=== PATIENT | male | born 1950 | race Caucasian/White ===

== ENCOUNTER 2017-11-03 01:45 | Inpatient (IN) | END 2017-11-05 17:10 | disposition home or self-care (01) | DRG 378 ==

== ENCOUNTER 2018-08-01 23:35 | Emergency (ER) | payer MEDICARE, MEDICAID ==
[~2018-08-01] VITALS: Ht 167.6 cm; Wt 89.1 kg
[~2018-08-01 23:35] MED LIST: ASCO500C7 PO; ASPI-817 PO; CIPR500T4 PO; DOCU-216 PO; GLIM4TAB PO; GLUC-181 PO; LEVO25TA6 PO; LISI-471 PO; METR500T19 PO; MTF1000T PO; MULT-761 PO; OMEG1CAP35 PO; PANT40TA3 PO; SIMV5TAB50 PO; TERA10CA3 PO
[2018-08-01 23:37] VITALS: Ht 167.6 cm; Wt 89.1 kg
[2018-08-02] MEDS ORDERED: SOD CHLORIDE 0.9% 500 ML IV STA (00:37)
--- NOTE | 2018-08-02 00:53 | ERD ---
ER Documentation Chief Complaint Chief Complaint Blood in stool X3 X 1 day HPI This is a 67-year-old male who is here with rectal bleeding. The patient has a history of diverticulitis and he said that he is having some mild abdominal pain lower portion with 3 episodes of bloody diarrhea starting at 6 PM today. No dizziness no pain in the back no vomiting fever ROS All systems reviewed and are negative except as per history of present illness. Medications Home Meds Active Scripts Metronidazole* (Metronidazole*) 500 Mg Tablet, 500 MG PO Q8, #33 TAB Prov:YARITZA AG 11/05/17 Ciprofloxacin Hcl* (Ciprofloxacin Hcl*) 500 Mg Tablet, 500 MG PO BID, #22 TAB Prov:YARITZA AG 11/05/17 Pantoprazole* (Protonix*) 40 Mg Tablet.dr, 40 MG PO DAILY, #30 TAB Prov:YARITZA AG 11/05/17 Docusate Sodium (Dok) 100 Mg Capsule, 100 MG PO Q12H PRN for CONSTIPATION, #60 CAP Prov:YARITZA AG 11/05/17 Reported Medications Ascorbic Acid* (Vitamin C*) 500 Mg Capsule.sa, 1000 MG PO DAILY, CAP 11/03/17 Glucosam/Chond/Hyalu/Cf Borate (Move Free Joint Health Tablet) 1 Each Tablet, 1 EACH PO DAILY, TAB 11/03/17 Levothyroxine Sodium* (Levothyroxine Sodium*) 25 Mcg Tablet, 25 MCG PO BEFORE BREAKFAST, TAB 11/03/17 Multivitamin (MULTI VITAMIN DAILY) 1 Each Tablet, 1 TAB PO DAILY, TAB 11/03/17 [place]-3/Dha/Epa/Fish Oil (FISH OIL 1,400 MG SOFTGEL) 1 Each Capsule.dr, 1 EACH PO DAILY 11/03/17 Aspirin* (Aspirin* EC) 81 Mg Tablet.dr, 81 MG PO DAILY, TAB 11/03/17 Terazosin Hcl* (Terazosin Hcl*) 10 Mg Capsule, 10 MG PO HS, CAP 11/03/17 Simvastatin* (Simvastatin*) 5 Mg Tablet, 20 MG PO QHS, TAB 11/03/17 Lisinopril* (Lisinopril*) 20 Mg Tablet, 20 MG PO DAILY, TAB 11/03/17 Glimepiride* (Glimepiride*) 4 Mg Tablet, 4 MG PO WITH BREAKFAST, TAB 11/03/17 Metformin* (Glucophage*) 1,000 Mg Tablet, 1000 MG PO BID, TAB 11/03/17 Allergies Allergies: Coded Allergies: No Known Allergy (Unverified , 08/02/18) PMhx/Soc Medical and Surgical Hx: pt denies Surgical Hx History of Surgery: Yes (EGD, COLONOSCOPY 2010) Anesthesia Reaction: No Hx Neurological Disorder: No Hx Respiratory Disorders: No Hx Cardiac Disorders: Yes (DM, HTN, CHOLES) Hx Psychiatric Problems: No Hx Miscellaneous Medical Probl: Yes (GASTRITIS, HEMORRHOIDS) Hx Alcohol Use: Yes (DRINKS SOCIALLY) Hx Substance Use: No Hx Tobacco Use: No Smoking Status: Never smoker FmHx Family History: No coronary disease Physical Exam Vitals Vital Signs Date Temp Pulse Resp B/P (MAP) Pulse Ox O2 O2 Flow FiO2 Time Delivery Rate 08/02/18 68 18 109/76 98 Room Air 04:03 (87) 08/02/18 63 13 109/76 98 Room Air 02:43 (87) 08/02/18 97.9 96 16 124/85 98 Room Air 00:19 (98) 08/01/18 97.5 100 18 147/89 98 23:37 (108) Physical Exam Const: Well-developed, well-nourished Head: Atraumatic, normocephalic Eyes: Normal Conjunctiva, PERRLA, EOMI, normal sclera, no nystagmus ENT: Normal External Ears, Nose and Mouth, moist mucus membranes. Neck: Full range of motion. No meningismus, no lymphadenopathy. Resp: Clear to auscultation bilaterally, no wheezing, rhonchi, rales Cardio: Regular rate and rhythm, no murmurs, S1 S2 present Abd: Soft, mild lower abdominal tenderness midline, non distended. Normal bowel sounds, no guarding or rebound, no pulsitile abdominal masses or bruits Skin: No petechiae or rashes, no ecchymosis , no maculopapular rash Back: No midline or flank tenderness Ext: No cyanosis, or edema, FROM x 4, normal inspection, neurovascularly intact x 4 Neur: Awake and alert, STR 5/5 x 4, sensation intact x 4, no focal findings, cerebellum intact Psych: Normal Mood and Affect Result Diagram: 08/02/186 08/02/18 0046 Results 24 hrs Laboratory Tests Test 08/02/18 00:46 White Blood Count 6.2 10^3/ul Red Blood Count 4.06 10^6/ul Hemoglobin 12.0 g/dl Hematocrit 35.9 % Mean Corpuscular Volume 88.4 fl Mean Corpuscular Hemoglobin 29.6 pg Mean Corpuscular Hemoglobin Concent 33.4 g/dl Red Cell Distribution Width 11.9 % Platelet Count 145 10^3/UL Mean Platelet Volume 10.1 fl Immature Granulocytes % 0.200 % Neutrophils % 56.0 % Lymphocytes % 32.8 % Monocytes % 9.5 % Eosinophils % 1.0 % Basophils % 0.5 % Nucleated Red Blood Cells % 0.0 /100WBC Immature Granulocytes # 0.010 10^3/ul Neutrophils # 3.5 10^3/ul Lymphocytes # 2.0 10^3/ul Monocytes # 0.6 10^3/ul Eosinophils # 0.1 10^3/ul Basophils # 0.0 10^3/ul Nucleated Red Blood Cells # 0.0 10^3/ul Prothrombin Time 12.2 Sec Prothrombin Time Ratio 1.0 INR International Normalized Ratio 0.89 Activated Partial Thromboplast Time 27.9 Sec Sodium Level 143 mmol/L Potassium Level 4.4 mmol/L Chloride Level 107 mmol/L Carbon Dioxide Level 26 mmol/L Anion Gap 10 Blood Urea Nitrogen 20 mg/dl Creatinine 0.74 mg/dl Est Glomerular Filtrat Rate mL/min > 60 mL/min Glucose Level 166 mg/dl Calcium Level 8.7 mg/dl Total Bilirubin 0.6 mg/dl Direct Bilirubin 0.00 mg/dl Indirect Bilirubin 0.6 mg/dl Aspartate Amino Transf (AST/SGOT) 24 IU/L Alanine Aminotransferase (ALT/SGPT) 32 IU/L Alkaline Phosphatase 53 IU/L Total Protein 6.7 g/dl Albumin 4.0 g/dl Globulin 2.70 g/dl Albumin/Globulin Ratio 1.48 Lipase 109 U/L Current Medications Medications Dose Sig/Hilario Start Time Status Last (Trade) Ordered Route PRN Stop Time Admin Dose Reason Admin Sodium 500 ml @ Q1H STAT 08/02/18 DC 08/02/18 Chloride 500 mls/hr IV 00:37 08/02/18 01:04 01:36 Sodium 100 ml @ ud STK-MED 08/02/18 DC 08/02/18 Chloride ONCE .ROUTE 02:42 08/02/18 02:43 02:43 Iohexol 150 ml STK-MED 08/02/18 DC 08/02/18 (Omnipaque ONCE .ROUTE 02:42 08/02/18 02:43 300mg/ ml) 02:43 Procedures/MDM PROCEDURE: CT Abdomen and Pelvis without contrast. CLINICAL INDICATION: Abdominal pain. TECHNIQUE: CT scan of the abdomen and pelvis without contrast was performed on a multidetector high-resolution CT scanner. The patient was scanned without intravenous contrast. Coronal and sagittal reformatted images were obtained from the axial source images. Images were reviewed on a high-resolution PACS workstation. The total exam CTDI equals 13.09 mGy and the total exam DLP equals 860.88 mGy-cm. DICOM images are available. One or more of the following dose reduction techniques were utilized: 1.) Automated exposure control 2.) Adjustment of the mA +/- kV according to patient's size 3.) Use of iterative reconstruction technique. COMPARISON: CT examination of the abdomen and pelvis dated 11/03/2017 FINDINGS: CT abdomen: The lung bases are clear. The heart size is mildly enlarged, without pericardial thickening or effusion. Mural thickening and luminal narrowing is seen in the colon, particularly in the transverse and descending colons, with mild pericolonic fat inflammatory changes, suggesting mild colitis. These findings are new over interval since 11/03/2017. Diverticulosis is seen throughout the abdominal colon, greater in the right colon. The liver demonstrates low post contrast attenuation, less than that seen in the spleen, compatible with a degree of fatty infiltration. Otherwise, the liver is normal in size without focal mass or intrahepatic biliary dilatation. The spleen is normal in size and homogeneous in density. The stomach is partially collapsed, but is grossly unremarkable. The pancreas as visualized is normal. The gallbladder demonstrates mild mural calcifications; and biliary tree is un remarkable and there is no evidence for biliary dilatation. The adrenal glands are symmetric and normal. The kidneys are symmetrically unremarkable. No renal calculus or obstructive uropathy or mass lesion is seen. The aorta is of normal caliber. Aortic vascular calcifications are present. T here is no retroperitoneal lymphadenopathy. The christine hepatis region is clear. The bowel and mesentery, as visualized, are equally unremarkable. CT pelvis: The small bowel loops situated within the pelvis are unremarkable. The prostate is mildly prominent, measuring up to 52 mm, and cannot be further evaluated on the present series. The pelvic organs are normal. The pelvic sidewalls and in guinal regions are clear. The sigmoid colon and rectum are remarkable for liquid stool in the sigmoid colon, and are otherwise without evident acute process. No mass, lymphadenopathy, or free fluid is seen. No acute inflammation is seen. The surrounding osseous structures are unremarkable. No osteolytic or osteoblastic lesion is detected. IMPRESSION: 1. At least a mild degree of colitis involves the transverse and descending colons. 2. Extensive diverticulosis is again seen in the right and descending colon, greater in the right colon. 3. The appendix is unremarkable. 4. At least a mild degree of fatty infiltration of the liver. 5. Mild mural calcifications are again seen in the gallbladder, similar in appearance to prior examination dated 11/03/2017. 6. Liquid stool in the sigmoid colon. 7. Mildly prominent prostate measures up to 52 mm in transverse dimension, and cannot be further evaluated on the present series. RPTAT: [facility] Physician Bridgette Date Time Electronically viewed and signed by Physician Bridgette on 08/02/2018 03:13 RS/ CC: FIONA HOFFMAN DO [id number] The patient has some mild colitis as a result he is having some bloody diarrhea. I discussed this with the patient and we will do 1 g of Invanz IV and go home with Cipro and Flagyl with close observation at home over the next 24 hours. I informed him he may have 1-3 more bloody stools but any more than that he needs to return to the ER for admission to the hospital or if he gets any abdominal pain or fever. His hemoglobin is 12 and his white count is normal I feel he safe for trial of outpatient colitis therapy Patient feels much better at this time, and vital signs are normal, symptoms have improved. I did give strict instructions to return to the ED if symptoms continue or worsen, patient will otherwise follow-up with primary care physician . Patient understood instructions and agreed to plan. Disclaimer: Inadvertent spelling and grammatical errors are likely due to EHR/dictation software use and do not reflect on the overall quality of patient care. Also, please note that the electronic time recorded on this note does not necessarily reflect the actual time of the patient encounter. Departure Diagnosis: Primary Impression: Colitis Condition: Stable FIONA HOFFMAN DO Aug 02, 2018 00:53
[2018-08-02] MEDS ORDERED: IOHEXOL 300MG/ML 150 ML BTL ONE (02:42)
[2018-08-02] MEDS ORDERED: SOD CHLORIDE 0.9% 100 ML ONE (02:42)
[2018-08-02 04:03] VITALS: BP 109/76; PULSE 68; RESP 18
[2018-08-02] MEDS ORDERED: METR500T PO (04:21)
[2018-08-02] MEDS ORDERED: CIPR500T4 PO (04:21)
[2018-08-02] MEDS ORDERED: ERTAPENEM SODIUM 1 GM in SOD CHLORIDE 0.9% 100 ML IVPB ONE (04:30)
== END 2018-08-02 05:57 | disposition home or self-care (01) ==
LOC: E/R 23:35
DX: K52.9 Noninfective gastroenteritis and colitis, unspecified (principal); I10 Essential (primary) hypertension; E11.9 Type 2 diabetes mellitus without complications; Z79.82 Long term (current) use of aspirin; Z79.84 Long term (current) use of oral hypoglycemic drugs
CPT/HCPCS: 36415; 74177; 80053; 83690; 85025; 85610; 85730; 96374; 99285; J1335; J7040; Q9967